=== PATIENT | male | born 1970 | race Asian ===

== ENCOUNTER → 2023-05-01 07:45 | Outpatient (REF) | payer OTHER, SELFPAY | LOC: REG 07:45 | PROVIDERS: ATTENDING PHYSICIAN Internal Medicine Cardiovascular Disease | DX: I49.9 Cardiac arrhythmia, unspecified (principal) | CPT/HCPCS: 36415 ==

== ENCOUNTER → 2023-05-03 07:16 | Outpatient (REF) | payer OTHER, SELFPAY ==
[2023-05-03 08:39] LABS: ALT (SGPT) 25 U/L (0-50); AST (SGOT) 24 U/L (17-59); Albumin 4.6 g/dl (3.5-5.0); Alkaline Phosphatase 65 U/L (38-126); Blood Urea Nitrogen 13 mg/dl (9-20); Calcium 10.1 mg/dl (8.4-10.2); Carbon Dioxide 29 mmol/L (22-30); Chloride 101 mmol/L (98-107); Glucose 95 mg/dl (70-99); HDL Cholesterol 41 mg/dl; LDL Cholesterol, Calculated 155 mg/dl; Sodium 141 mmol/L (135-145); Total Cholesterol 232 mg/dl (50-199); Total Protein 7.7 g/dl (6.3-8.2); Triglyceride 180 mg/dl (10-149); Very Low Density Lipoprotein 36 mg/dl (0-30); eGFR > 60.00
== END ==
LOC: REG 07:16
PROVIDERS: ATTENDING PHYSICIAN Internal Medicine Cardiovascular Disease
DX: I49.9 Cardiac arrhythmia, unspecified (principal)
CPT/HCPCS: 36415; 80053; 80061

== ENCOUNTER → 2023-07-08 15:00 | Outpatient (REF) | payer OTHER, SELFPAY | LOC: HWRCS 15:00 | PROVIDERS: ATTENDING PHYSICIAN Nurse Practitioner | DX: I49.9 Cardiac arrhythmia, unspecified (principal); R00.2 Palpitations; E78.00 Pure hypercholesterolemia, unspecified; R06.02 Shortness of breath | CPT/HCPCS: 93306 ==

== ENCOUNTER → 2023-08-06 07:59 | Outpatient (REF) | payer OTHER, SELFPAY ==
[2023-08-06 09:22] LABS: ALT (SGPT) 33 U/L (0-50); AST (SGOT) 28 U/L (17-59); HDL Cholesterol 48 mg/dl; LDL Cholesterol, Calculated 65 mg/dl; Total Cholesterol 130 mg/dl (50-199); Triglyceride 88 mg/dl (10-149); Very Low Density Lipoprotein 17 mg/dl (0-30)
== END ==
LOC: REG 07:59
PROVIDERS: ATTENDING PHYSICIAN Nurse Practitioner
DX: R00.2 Palpitations (principal); I49.9 Cardiac arrhythmia, unspecified; E78.00 Pure hypercholesterolemia, unspecified; R06.02 Shortness of breath
CPT/HCPCS: 36415; 80061; 84450; 84460